=== PATIENT | male | born 1940 | race Caucasian/White ===

== ENCOUNTER 2016-06-16 19:02 | Inpatient (IN) ==
[2016-06-16] MEDS ORDERED: ASPIRIN 325 MG TABLET PO STA (22:13)
[2016-06-16] MEDS ORDERED: ASPIRIN 325 MG TABLET ONE (22:16)
--- NOTE | 2016-06-16 22:16 | Emergency Department Note ---
IAzalea Kasabria, am scribing for, and in the presence of, Wilyl Smith MD 22:11. ILuis Charles R, MD, personally performed the services described in this documentation, ascribed by Aide Tristan in my presence, and it is both accurate and complete . Arrival - Arrival Chief Complaint: Weakness Stated Complaint: MAY HAVE HAD A STROKE ED Nursing Triage Note: pt states he is having right and left side leg pain that started yesterday around 1800. states he hurt all night and all today. states he feels weaker on the right side and is unable to ambulate without a cane Limitations: No Limitations Source: Patient Time Seen by Provider: 06/16/16 21:07 - History of Present Illness HPI Narrative: This is a 76 y/o white male presenting to the ED with c/o right leg weakness, right leg pain and numbness, left shoulder pain that onset last night. He states throughout the course of the day the weakness and decreased strength worsened and he had to use a cane. He believes he may have had a stroke. Pt denies fever, chills, nausea, vomiting, diarrhea, abdominal pain, back pain, facial numbness and weakness, and vertigo. Pt states he has had diarrhea for the past week but denies hematochezia. When standing pt states he drifts to the right. Pt has a pacemaker and his slinger sequins is Dr. Escobar. Consistency: constant Severity: moderate Allergies/Adverse Reactions: Allergies Allergy/AdvReac Type Severity Reaction Status Date / Time No Known Allergies Allergy Verified 10/03/14 19:57 Home Medications: Home Medications Medication Instructions Recorded Confirmed Type Aspirin [Ecotrin] 81 mg PO QOTHER DAY 10/03/14 12/16/15 History Carvedilol [Coreg] 25 mg PO BID 10/03/14 12/16/15 History Furosemide Tab [Lasix Tab] 40 mg PO DAILY 10/03/14 12/16/15 History Levothyroxine Tab [Synthroid Tab] 150 mcg PO BEDTIME 10/03/14 12/16/15 History Lisinopril 5 mg PO DAILY 10/03/14 12/16/15 History Niacin 500 mg PO DAILY 10/03/14 12/16/15 History Amitriptyline [Elavil] 25 mg PO BEDTIME 12/16/15 12/16/15 History Ciprofloxacin Tab [Cipro Tab] 500 mg PO Q12HR #20 tablet 12/16/15 Rx Colestipol HCl [Colestid] 2 gm PO BID 12/16/15 12/16/15 History Eluxadoline [Viberzi] 75 mg PO BID 12/16/15 12/16/15 History Review of System - Review of System 12 point system: reviewed and no additional remarkable complaints except as stated - Review of System Constitutional: Present: weakness. Absent: chills, fever Eyes: Absent: vision change Head/Ears/Nose/Throat: Absent: nasal drainage Respiratory: Absent: cough Cardiovascular: Absent: chest pain, dyspnea on exertion, syncope Gastrointestinal: Absent: abdominal pain, nausea, vomiting Genitourinary male: Absent: dysuria Musculoskeletal: Present: arm pain (left shoulder pain ), leg pain (right leg pain and numbness ). Absent: back pain, neck pain Skin: Absent: rash Neurological: Absent: headache, weakness, confusion, vertigo Psychiatric: Absent: anxiety Endocrine: Absent: fatigue Hematological/Lymphatic: Absent: easy bleeding Allergic/Immunologic: Absent: facial swelling Medical,Surgical,& Family Hx - Medical History Cardio: History of: Pacemaker, Cardiovascular Problems (pt states he also has a defibrillator) HEENT: History of: Ear Problem (Difficulty hearing), HEENT Problems (Sinus surgery) Endocrine: History of: Thyroid Disorder (Was prescribed Synthroid 0.150 mg Daily ) Genitourinary: History of: Prostate Problems (Was prescribed Flomax) Gastrointestinal: History of: Diverticulitis/ Diverticulosis, GERD ( fundoplication at [place] several years ago), GI Problems (Irritable Bowel Syndrome ) Reproductive: No histroy: Reproductive Problems Other: History of: Cancer (Possible colon cancer) - Surgical History Thoracic Surgeries: Patient denies;: Organ Transplant Abdominal Surgeries: Surgical HX of: Abdominal Surgery, Cholecystectomy Reproductive Surgeries: Surgical HX of;: Prostate Surgery (TURP) Orthopedic Surgeries: Surgical HX of;: Orthopedic Surgery (Back surgery) - Family History Family History: Reports;: Family Cancer (father, prostate), Family Diabetes ( father) Denies;: Family Anesthesia Reaction, Family Heart Disease, Family Hypertension, Family Psychiatric Problems, Family Stroke - Social History Smoking Status: Never smoker Frequency of Alcohol Use: None Type of Drug Use: None Exam Vital Signs: Vital Signs Temperature 99.3 F 06/16/16 20:25 Pulse Rate 72 06/16/16 20:25 Respiratory Rate 16 06/16/16 20:25 Blood Pressure 140/71 06/16/16 20:25 O2 Sat by Pulse Oximetry 97 06/16/16 19:06 - General General appearance: alert, in no apparent distress - Head Head exam: Present: atraumatic, normocephalic, normal inspection - Eye Eye exam: Present: normal appearance, PERRL, EOMI - ENT ENT exam: Present: normal exam, normal oropharynx, mucous membranes moist, TM's normal bilaterally, normal external ear exam - Neck Neck exam: Present: normal inspection, full ROM, trachea midline. Absent: tenderness - Respiratory Respiratory exam: Present: normal lung sounds bilaterally - Cardiovascular Cardiovascular exam: Present: regular rate, normal rhythm, normal heart sounds - Abdominal Exam Abdominal exam: Present: soft, normal bowel sounds. Absent: distention, tenderness - Extremities Exam Extremities exam: Present: full ROM, normal capillary refill, pedal edema (+2 edema bilaterally to lower extremities ). Absent: normal inspection, tenderness , calf tenderness - Back Exam Back exam: Present: normal inspection, full ROM. Absent: tenderness - Neurological Exam Neurological exam: Present: alert, oriented X3, CN II-XII intact, normal gait, motor sensory deficit (right leg weaker than left; weak per diem clerk to the right side) - Psychiatric Psychiatric exam: Present: normal affect, normal mood - Skin Skin exam: Present: warm, dry, intact, normal color. Absent: rash, diaphoresis Results - Labs CBC & BMP: 06/16/16 20:50 06/16/16 20:50 Lab Results: I have reviewed the patients labs Disposition Clinical Impression: Right lower extremity weakness, Right knee pain and swelling Case discussed with: patient Disposition: Still a Patient Condition: Stable Time of Disposition: 01:01 NIH Stroke Score - Stroke Score Initial Assessment Level of Consciousness: Alert Level of Consciousness Questions: Answers Both Correctly Level of Consciousness Commands: Obeys Both Correctly Best Gaze: Normal Visual Tristan: No Visual Loss Facial Palsy: Normal Motor - Right Arm: No Drift Motor - Left Arm: No Drift Motor - Right Leg: Drift Motor - Left Leg: No Drift Limb Ataxia: Absent Sensory (Pin Prick): Normal Best Language: Normal Dysarthria: Normal Extinction / Inattention (Neglect): No Neglect NIH Stroke Score: 1
[2016-06-16 22:28] LABS: Basophils % 0.3 % (0.0-0.8); Eosinophils # 0.1 10*3/uL (0.0-0.87); Eosinophils % 0.6 % (0.00-10.9); Hematocrit 44.3 VOL% (42.0-52.0); Hemoglobin 15.2 GM/DL (14.0-18.0); Immature Granulocytes % 0.9 %; Lymphocytes # 2.7 10*3/uL (1.4-4.0); Mean Corpuscular HGB Conc 34.3 GM/DL (32-36); Mean Corpuscular Hemoglobin 33 PG (27-34); Mean Corpuscular Volume 95.9 FL (87-102); Mean Platelet Volume 10.1 FL (9.6-12.0); Monocytes % 8.9 % (1.7-12.7); Neutrophils % 64.3 % (38.7-73.9); Platelet Count 159 T/CUMM (130-400); Red Blood Count 4.62 MC/CUMM (3.8-5.5); Red Cell Distribution Width 12.9 % (9.3-17.3); White Blood Count 10.8 T/CUMM (4-12)
[2016-06-16 22:28] LABS: Apearance,Urine CLEAR (Clear); Bilirubin,Urine Negative (Negative); Blood, Urine Negative (Negative); Glucose,Urine (UA) Negative (Negative); Hyaline Casts,Urine 1 /LPF (0-3); Ketones,Urine Negative (Negative); Mucus,Urine Occasional /LPF (Occasional); Nitrite,Urine Negative (Negative); Protein,Urine Negative; Urine Color Yellow (Yellow); Urine Urobilinogen < 2.0 EU/DL (0.2-1.0)
[2016-06-16 22:29] LABS: Partial Thromboplastin Time 28.5 SECS (0-40)
--- NOTE | 2016-06-16 22:29 | XRay Report ---
Portable chest Date: 06/16/2016 Clinical history: Cardiomegaly Comparison: 07/25/2012 Technique: Portable AP sitting chest Findings: The heart is minimally enlarged with left subclavian atrioventricular AICD. Chronic scarring in the lungs with unremarkable mediastinum. Degenerative changes are noted. Chronic volume loss in the distal left clavicle. Impression: No acute cardiopulmonary pathology identified. Left subclavian atrioventricular AICD. PROCEDURE INTERPRETED AT [facility] DEPARTMENT OF RADIOLOGY Final Report Signed by: Dr. Leonor Gonzáles
[2016-06-16 22:31] LABS: Barbiturates Screen,Urine Negative (Negative); Benzodiazepines Screen,Urine Negative (Negative); Cannabinoid Screen,Urine Negative (Negative); Opiate Screen,Urine Positive (Negative); Phencyclidine Screen,Urine Negative (Negative)
[2016-06-16 22:35] LABS: Alanine Aminotransferase 30 U/L (16-61); Albumin 4.2 G/DL (3.4-5.0); Alkaline Phosphatase 71 U/L (45-117); Aspartate Amino Transferase 23 U/L (0-37); Blood Urea Nitrogen 28 MG/DL (7-18); Calcium 8.6 MG/DL (8.5-10.1); Glucose 104 MG/DL (74-106); Osmolality,Calculated 282.5 MOS/KG (273-304); Potassium 4.3 MMOL/L (3.5-5.1); Sodium 139 MMOL/L (136-145); Total Protein 7.2 G/DL (6.4-8.3); Troponin I Only < 0.015 NG/ML (0.00-0.045)
--- NOTE | 2016-06-16 22:43 | CT Report ---
Referring physician: Willy Smith Exam: CT brain without contrast Date: 06/16/2016 Comparison: 10/05/2014 Reason: Hemiparesis, weakness right greater than left Technique: Axial images of the head were obtained without the use of contrast. Total DLP was 1134.10 mGy*cm. Findings: No hydrocephalus or midline shift is present. There is no evidence of an acute infarction, recent intracranial hemorrhage or abnormal mass effect. Persistent atrophy and diffuse cerebral hypodensities. The mastoid air cells are clear. Postoperative findings in the paranasal sinuses with stable density in the frontal sinuses. Mucosal thickening/fluid in the anterior left ethmoid air cells/frontal sinuses with chronic mucosal thickening in the top of the maxillary sinuses. Impression: No acute intracranial abnormality is identified. Atrophy and microvascular disease. Sinusitis. The CT exam was performed using one or more of the following dose reduction techniques: Automated exposure control and adjustment of the mA and/or kV according to patient size. PROCEDURE INTERPRETED AT [facility] DEPARTMENT OF RADIOLOGY Final Report Signed by: Dr. Leonor Gonzáles
[2016-06-16 23:58] LABS: Free T4 (Free Thyroxine) 1.3 NG/DL (0.76-1.46); Thyroid Stimulating Hormone 1.37 uIU/ml (0.358-3.74)
[2016-06-17] MEDS ORDERED: LABETALOL 20 MG/4 ML SYRINGE IV PRN (00:15)
--- NOTE | 2016-06-17 00:20 | Hospitalist History & Physical ---
Assessment and Plan (1) Right leg weakness Status: Acute Assessment and plan: Rule out possible stroke. I suspect this is related to his knee and leg pain and swelling. Will get ultrasound of the lower extremity to rule out DVT. He does not have any significant right upper extremity weakness. Speech is intact and there is no facial droop. Sensation appears to be intact also. Patient unable to get an MRI due to pacemaker placement. Will perform stroke workup with carotid ultrasound and echocardiogram and neurology consult. Current Visit: Yes (2) CVA (cerebral vascular accident) Status: Acute Current Visit: Yes Qualifiers: Laterality of affected vessel: left (3) Hypertension Status: Chronic Current Visit: Yes Qualifiers: Hypertension type: essential hypertension Qualified Code(s): I10 - Essential (primary) hypertension History of Present Illness Chief complaint: Right leg weakness, inability to walk History of present illness: Mr. May is a 76 year old male presenting to the ED with c/o right leg weakness , right leg pain and numbness. He states throughout the course of the day the weakness and decreased strength worsened and he had to use a cane. He believes he may have had a stroke. Pt denies fever, chills, nausea, vomiting, diarrhea, abdominal pain, back pain, facial numbness and weakness, and vertigo. Pt states he has had diarrhea for the past week but denies hematochezia. When standing pt states he drifts to the right. Pt has a pacemaker and his sales and service advisor is Dr. Escobar. He denies any blurred vision, headache, slurred speech or facial asymmetry. He does complain of significant right knee pain and swelling. He has a history of previous orthopedic surgery and follows with Dr. Jackson Carrera. Home Medications Medication Instructions Recorded Confirmed Type Aspirin [Ecotrin] 81 mg PO QOTHER DAY 10/03/14 12/16/15 History Carvedilol [Coreg] 25 mg PO BID 10/03/14 12/16/15 History Furosemide Tab [Lasix Tab] 40 mg PO DAILY 10/03/14 12/16/15 History Levothyroxine Tab [Synthroid Tab] 150 mcg PO BEDTIME 10/03/14 12/16/15 History Lisinopril 5 mg PO DAILY 10/03/14 12/16/15 History Niacin 500 mg PO DAILY 10/03/14 12/16/15 History Amitriptyline [Elavil] 25 mg PO BEDTIME 12/16/15 12/16/15 History Ciprofloxacin Tab [Cipro Tab] 500 mg PO Q12HR #20 tablet 12/16/15 Rx Colestipol HCl [Colestid] 2 gm PO BID 12/16/15 12/16/15 History Eluxadoline [Viberzi] 75 mg PO BID 12/16/15 12/16/15 History Allergies Allergy/AdvReac Type Severity Reaction Status Date / Time No Known Allergies Allergy Verified 10/03/14 19:57 Medical,Surgical,& Family Hx - Medical History Cardio: History of: Pacemaker, Cardiovascular Problems (pt states he also has a defibrillator) HEENT: History of: Ear Problem (Difficulty hearing), HEENT Problems (Sinus surgery) Endocrine: History of: Thyroid Disorder (Was prescribed Synthroid 0.150 mg Daily ) Genitourinary: History of: Prostate Problems (Was prescribed Flomax) Gastrointestinal: History of: Diverticulitis/ Diverticulosis, GERD ( fundoplication at [place] several years ago), GI Problems (Irritable Bowel Syndrome ) Reproductive: No histroy: Reproductive Problems Other: History of: Cancer (Possible colon cancer) - Surgical History Thoracic Surgeries: Patient denies;: Organ Transplant Abdominal Surgeries: Surgical HX of: Abdominal Surgery, Cholecystectomy Reproductive Surgeries: Surgical HX of;: Prostate Surgery (TURP) Orthopedic Surgeries: Surgical HX of;: Orthopedic Surgery (Back surgery), Total Knee Replacement - Family History Family History: Reports;: Family Cancer (father, prostate), Family Diabetes ( father) Denies;: Family Anesthesia Reaction, Family Heart Disease, Family Hypertension, Family Psychiatric Problems, Family Stroke - Social History Smoking Status: Never smoker Frequency of Alcohol Use: None Type of Drug Use: None Marital Status: Single Lives With:: Alone Functional capacity: independent ambulation 12 point system: reviewed and no additional remarkable complaints except as stated Exam - Constitutional Vitals: Period Temp Pulse Resp BP Sys/Peck Pulse Ox Last 24 Hr 99.3 F-99.3 F 72-72 16-16 140-140/71-71 97 Exam: Constitutional System: No distress. No tremulousness. Head: Normocephalic, atraumatic. Ears, Nose and Throat System: No pain or tenderness. No epistaxis or discharge Eyes System: Pupils equal, round, and reactive. Extraocular muscles intact. Neck: Supple, without adenopathy, No jugular venous distention. No thyromegaly, neck mass, or prior surgery apparent. Respiratory System: Chest clear to auscultation. Cardiovascular System: Heart with regular rate and rhythm. No murmur. GI System: Abdomen soft, nontender. Normo active bowel sounds present. Musculoskeletal System: Right lower extremity with significant swelling and no pitting edema Full distal pulses. Right knee is significantly swollen, tender and warm. Neurological System: No discernable sensory deficit. No aphasia. Equal strength bilaterally. I was not able to ambulate the patient due to his knee pain. He has significant difficulty moving the right lower extremity secondary to swelling and pain. This does not appear to be an acute neurologic deficit. Speech is intact. Psychiatric System: Conversation is rational Results - Labs CBC & BMP: 06/16/16 20:50 06/16/16 20:50 Lab Results: I have reviewed the past 24 hour labs
[2016-06-17] MEDS: SODIUM CHLORIDE 0.9% 1,000 ML IV SCH (01:55)
[2016-06-17] MEDS ORDERED: COLCHICINE 0.6 MG TABLET PO ONE (02:53)
[2016-06-17 02:55] LABS: Risk Ratio 2.23; Thyroid Stimulating Hormone 1.28 uIU/ml (0.358-3.74); VLDL CHOLESTEROL 18.6 MG/DL
[2016-06-17] MEDS: ACETAMINOPHEN 325 MG TABLET PO PRN (03:04)
--- NOTE | 2016-06-17 06:48 | EKG Report ---
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
--- NOTE | 2016-06-17 08:12 | Ultrasound Report ---
Exam: Bilateral lower extremity venous Doppler ultrasound Comparison: None Clinical history: Right leg pain and swelling, edema Technique: Duplex scan of the lower extremity veins using B-mode/grayscale scaled imaging and Doppler spectral analysis and color flow. Findings: Major venous structures of the lower extremities demonstrate a normal course and caliber. Normal color-flow study and spectral analysis. There is normal compression and augmentation of bilateral common femoral, superficial femoral and popliteal veins. The proximal bilateral greater saphenous veins appear to be patent. Impression: No evidence to suggest deep venous thrombosis within either lower extremity. Ultrasound images were captured and stored. PROCEDURE INTERPRETED AT [facility] DEPARTMENT OF RADIOLOGY Final Report Signed by: Dr. Leonor Gonzáles
--- NOTE | 2016-06-17 08:33 | Ultrasound Report ---
Exam: Carotid ultrasound Date: 06/17/2016 Comparison: None Technique: Duplex scans of the carotid and vertebral arteries using B-mode/Petit scale imaging and Doppler spectral analysis and color flow. Reason: CVA with right-sided weakness Findings: The right ICA measures 5.9 mm in diameter and the left ICA measures 4.2 mm in diameter. Color-flow documented in the visualized arteries. The peak systolic velocities are as follows: Right CCA: 66.7 cm/s Right ICA: 83.8 cm/s Right ECA: 93.5 cm/s Left CCA: 58.6 cm/s Left ICA: 153.0 cm/s Left ECA: 59.4 cm/s The peak systolic ICA/CCA velocity ratios are as follows: 1.2 on the right and 2.6 on the left. Antegrade flow is present in both vertebral arteries. Impression:[Less than 50% stenosis in right ICA. 50-79% stenosis and left ICA with heterogeneous plaque formation. The artery is tortuous and therefore this stenosis may be less critical. Antegrade flow in both vertebral arteries.] The Society of Radiologists in Ultrasound consensus conference criteria was used. The Ultrasound images were captured and stored. PROCEDURE INTERPRETED AT [facility] DEPARTMENT OF RADIOLOGY Final Report Signed by: Dr. Leonor Gonzáles
[2016-06-17] MEDS ORDERED: ELUXADOLINE 75 MG PO SCH (09:00)
[2016-06-17] MEDS: NIACIN 500 MG TABLET PO SCH (10:19)
[2016-06-17] MEDS: ENOXAPARIN 40 MG/0.4 ML SYRINGE SUBCUT SCH (10:19)
[2016-06-17] MEDS: PANTOPRAZOLE 40 MG TABLET PO SCH (10:19)
[2016-06-17] MEDS: ASPIRIN 325 MG TABLET PO SCH (10:19)
[2016-06-17] MEDS: LISINOPRIL 5 MG TABLET PO SCH (10:19)
[2016-06-17] MEDS: COLESTIPOL 1 GM TABLET PO SCH ×2 (10:19→20:55)
[2016-06-17] MEDS: CARVEDILOL 25 MG TABLET PO SCH ×2 (10:19→20:55)
--- NOTE | 2016-06-17 14:54 | Neurology Consult Note ---
History of Present Illness History of present illness: Mr. May is a 76 year old right-handed gentleman presented to the ED with c/o right leg weakness, right leg pain and numbness. Patient reported that it started day before yesterday with both leg weakness but the weakness was somewhat more than the right than the left. He states throughout the course of the day the weakness and decreased strength worsened and he had to use a cane. Pt denies fever, chills, nausea, vomiting, diarrhea, abdominal pain, back pain, facial numbness and weakness, and vertigo. Pt states he has had diarrhea for the past week but denies hematochezia. When standing pt states he drifts to the right. Pt has a pacemaker and his cytometry technologist is Dr. Escobar. He denies any blurred vision, headache, slurred speech or facial asymmetry. He does complain of significant right knee pain and swelling. He has a history of previous orthopedic surgery and follows with Dr. Jackson Crarera. He does have right foot dorsiflexion weakness. Patient reported that 2 days ago he was walking like a normal person but now he is having marked difficulty and having to use a walker. CT scan of the brain reveals no acute abnormalities. Home Medications Medication Instructions Recorded Confirmed Type Aspirin [Ecotrin] 81 mg PO QOTHER DAY 10/03/14 06/17/16 History Carvedilol [Coreg] 25 mg PO BID 10/03/14 06/17/16 History Furosemide Tab [Lasix Tab] 40 mg PO DAILY 10/03/14 06/17/16 History Levothyroxine Tab [Synthroid Tab] 150 mcg PO BEDTIME 10/03/14 06/17/16 History Lisinopril 5 mg PO DAILY 10/03/14 06/17/16 History Niacin 500 mg PO DAILY 10/03/14 06/17/16 History Amitriptyline [Elavil] 25 mg PO BEDTIME 12/16/15 06/17/16 History Ciprofloxacin Tab [Cipro Tab] 500 mg PO Q12HR #20 tablet 12/16/15 06/17/16 Rx Colestipol HCl [Colestid] 2 gm PO BID 12/16/15 06/17/16 History Eluxadoline [Viberzi] 75 mg PO BID 12/16/15 06/17/16 History Allergies Allergy/AdvReac Type Severity Reaction Status Date / Time No Known Allergies Allergy Verified 06/17/16 03:04 12 point system: reviewed and no additional remarkable complaints except as stated Medical,Surgical,& Family Hx - Medical History Cardio: History of: Pacemaker, Cardiovascular Problems (pt states he also has a defibrillator) HEENT: History of: Ear Problem (Difficulty hearing), HEENT Problems (Sinus surgery) Endocrine: History of: Thyroid Disorder (Was prescribed Synthroid 0.150 mg Daily ) Genitourinary: History of: Prostate Problems (Was prescribed Flomax) Gastrointestinal: History of: Diverticulitis/ Diverticulosis, GERD ( fundoplication at [place] several years ago), GI Problems (Irritable Bowel Syndrome ) Musculoskeletal: History of: Back/Neck Problems Reproductive: No histroy: Reproductive Problems Other: History of: Cancer (Possible colon cancer) - Surgical History Cardiac Surgeries: Sugical HX of: Internal Defibrillator Thoracic Surgeries: Patient denies;: Organ Transplant Abdominal Surgeries: Surgical HX of: Abdominal Surgery, Cholecystectomy Reproductive Surgeries: Surgical HX of;: Genitourinary Surgery, Prostate Surgery (TURP) Orthopedic Surgeries: Surgical HX of;: Orthopedic Surgery (Back surgery), Total Knee Replacement - Family History Family History: Reports;: Family Cancer (father, prostate), Family Diabetes ( father) Denies;: Family Anesthesia Reaction, Family Heart Disease, Family Hypertension, Family Psychiatric Problems, Family Stroke - Social History Smoking Status: Never smoker Frequency of Alcohol Use: None Type of Drug Use: None Exam - Constitutional Vitals: Period Temp Pulse Resp BP Sys/Peck Pulse Ox Last 24 Hr 97.6 F-98.6 F 70-79 18-20 111-129/63-85 94-96 Exam: GENERAL: Patient is in no acute distress. NECK: Neck is supple. There is no JVD. No carotid bruits present. No thyroid masses. CVS: First and second heart sounds are normal. There is no S3 present. Regular rate and rhythm. RESPIRATORY: Lungs are clear to auscultation without any rales or rhonchi. ABDOMEN: Soft and non-tender. Bowel sounds are present. There is no hepatosplenomegaly. EXT: There is no palpable edema. Peripheral pulses are present. Skin: No rashes Central Nervous system: General: Alert, awake and Oriented x 3 Speech: Fluent Comprehension: Intact and normal Facial expressions: Normal Cranial Nerves: CN1/Olfactory: Normal CN II/ Optic: Normal, Visual Tristan unreliable CN III, and : RACHELLE & EOMI CN V: Normal & intact CN VII: face is symmetric CNVIII: Normal CN XI/X/XI/XII: Intact and Normal Motor: Bulk and Tone is normal. Strength in the right 3/5 with manual weakness in the right dorsiflexion Strength in the left 4/5 Sensory: Decreased for all the modalities of PP, LT and temp sense stockings distribution Reflexes: 1+ and symmetrical Cerebellar function: Normal finger to nose and heel to kumari testing. Toes: Equivocal Gait: Able to get up and walk with the help of a walker Results - Labs CBC & BMP: 06/16/16 20:50 06/16/16 20:50 Assessment and Plan (1) Weakness of both lower extremities Status: Acute Assessment and plan: He reported weakness of both lower extremities however it is getting better and now he has primarily weakness in the right lower extremity. But pain is a major factor in the right knee as well. He does have mild right foot drop which is something new and given the history of preceding event of diarrhea followed by weakness, the whole scenario suggestive of possibility of demyelinating neuropathy such as Guillain-Yarbrough syndrome. Unfortunately nerve conduction study and EMG are not available over the weekend. Patient is improving rapidly as well. MRI cannot be performed due to pacemaker. At this point I would recommend to continue watchful observation and continue aggressive physical therapy since patient is improving. We will also continue pain management. If at any point in time over the weekend, I see that he is deteriorating again then we will start IVIG treatment. Thank you for the consult. Current Visit: Yes
[2016-06-17] MEDS: MAGNESIUM HYDROXIDE SUSP 30 ML UDCUP PO PRN (17:42)
--- NOTE | 2016-06-17 19:21 | ECHO Report ---
Augustus May Exam Date: 06/17/2016 14:53 Referring Physician: Technologist: Gabby Sharma RDCS Age: 76 Ht (in): 72 Wt (lb): 240 Gender: M Exam Location: [facility] Echo Indications: Right leg weakness, CVA, Essential (primary) hypertension, Presence of cardiac pacemaker BP: 111 / 63 HR: 75 Rhythm: Pacemaker Technical Quality: Fair to good IMPRESSIONS 1. Left ventricle is normal size and systolic function with ejection fraction 65%. There is mild concentric left ventricular hypertrophy with mild diastolic dysfunction at worse. 2. Left atrium is mildly dilated. 3. Right ventricle is normal size and function with right atrium mildly dilated. 4. Right and left ventricle show evidence of having pacemaker leads. 5. Anatomically normal aortic valve with trace insufficiency. 6. Mitral valve is grossly normal anatomically functioning. 7. Trace to mild tricuspid regurgitation. 8. No evidence of elevated right-sided pressures. 9. There is no gross source for emboli identified on this study. MEASUREMENTS (Male / Female) Normal Values 2D ECHO LV Diastolic Diameter PLAX 3.9 cm 4.2 - 5.9 / 3.9 - 5.3 cm LV Systolic Diameter PLAX 2.1 cm LV Fractional Shortening PLAX 46.8 % IVS Diastolic Thickness 1.4 cm 0.6 - 1.0 / 0.6 - 0.9 cm LVPW Diastolic Thickness 1.4 cm 0.6 - 1.0 / 0.6 - 0.9 cm RV Internal Dim ED PLAX 3.6 cm Aortic Root Diameter 3.4 cm LA Systolic Diameter LX 4.2 cm 3.0 - 4.0 / 2.7 - 3.8 cm DOPPLER TR Peak Velocity 231.0 cm/s TR Peak Gradient 21.3 mmHg FINDINGS Left Ventricle Normal left ventricular cavity size. Mild left ventricular hypertrophy. There may be mild diastolic dysfunction present. Left ventricular ejection fraction is estimated at 65 %. Right Ventricle Normal right ventricular size. Catheter/pacemaker wire visualized in the right ventricle. Right Atrium The right atrium is mildly enlarged. Catheter/pacemaker wire in the right atrial cavity. Left Atrium The left atrium is mildly enlarged. Mitral Valve Morphologically normal mitral valve without significant stenosis or prolapse. There is no mitral regurgitation. Aortic Valve Trileaflet aortic valve. Trace aortic valve regurgitation. Tricuspid Valve Morphologically normal tricuspid valve. Trace to mild tricuspid valve regurgitation. Tricuspid regurgitation velocities suggest a PAP of 31 mmHg. Pulmonic Valve Morphologically normal pulmonic valve. Trace pulmonary valve regurgitation. Pericardium Normal pericardium without effusion. Anterior pericardial fat pad is present. Aorta Normal ascending aorta dimension. Yifan Rodríguez MD (Electronically Signed) Final Date: 17 June 2016 19:20
[2016-06-17] MEDS: LEVOTHYROXINE 150 MCG TABLET PO SCH (20:55)
[2016-06-17] MEDS: AMITRIPTYLINE 25 MG TABLET PO SCH (20:57)
--- NOTE | 2016-06-18 08:36 | Orthopedic Consult Note ---
History of Present Illness Chief complaint: Right knee pain postop total knee, Dr. Carrera History of present illness: Mr. May is a 76 year old male who is been admitted to the medical service at [facility] for medical issues. He gives a history related to his right knee that includes total knee replacement performed by Dr. Jackson Carrera about 20 years ago he had no perioperative problems or complication is done well for a number of years. recently he has been having increasing amounts of pain discomfort and swelling. He reports that he saw Dr. Carrera a month ago and was prescribed a course of physical therapy for which she states it did not help his knee pain. He also reports that Dr. Carrera and Dr. Choi have discussed the possibility of revising his right knee replacement. He has not yet been offered that surgery, he does not know if they said anything about loosening. There is been no recent history of fall or injury. Examination: Well-developed nourished male the right knee reveals diffuse swelling about the right knee range of motion from 10 to about 90 with gentle active motion. There is no significant warmth no erythema no swelling distally about the tib-fib or ankle is stable to varus and valgus stress all of his wounds are well-healed without any evidence of complication. X-rays: none-on admission Impression: Painful right total knee, suspect aseptic loosening Plan: I discussed with him the most likely diagnosis and the potential for further treatment. He is clearly under the care of history of his treating physician, Dr. Carrera for which he has an over 20 year experience. Also he has been seen as recently as a month ago regarding this problem. There is no emergent problem here today and I have recommended that he seek follow-up with Dr. Carrera after discharge that can discuss further treatment options since his course of physical therapy has not resulted in improvement. He appears to understand and agrees with the discussion and plan going forward. Thank you Home Medications Medication Instructions Recorded Confirmed Type Aspirin [Ecotrin] 81 mg PO QOTHER DAY 10/03/14 06/17/16 History Carvedilol [Coreg] 25 mg PO BID 10/03/14 06/17/16 History Furosemide Tab [Lasix Tab] 40 mg PO DAILY 10/03/14 06/17/16 History Levothyroxine Tab [Synthroid Tab] 150 mcg PO BEDTIME 10/03/14 06/17/16 History Lisinopril 5 mg PO DAILY 10/03/14 06/17/16 History Niacin 500 mg PO DAILY 10/03/14 06/17/16 History Amitriptyline [Elavil] 25 mg PO BEDTIME 12/16/15 06/17/16 History Ciprofloxacin Tab [Cipro Tab] 500 mg PO Q12HR #20 tablet 12/16/15 06/17/16 Rx Colestipol HCl [Colestid] 2 gm PO BID 12/16/15 06/17/16 History Eluxadoline [Viberzi] 75 mg PO BID 12/16/15 06/17/16 History Allergies Allergy/AdvReac Type Severity Reaction Status Date / Time No Known Allergies Allergy Verified 06/17/16 03:04 Medical,Surgical,& Family Hx - Medical History Cardio: History of: Pacemaker, Cardiovascular Problems (pt states he also has a defibrillator) HEENT: History of: Ear Problem (Difficulty hearing), HEENT Problems (Sinus surgery) Endocrine: History of: Thyroid Disorder (Was prescribed Synthroid 0.150 mg Daily ) Genitourinary: History of: Prostate Problems (Was prescribed Flomax) Gastrointestinal: History of: Diverticulitis/ Diverticulosis, GERD ( fundoplication at [facility] several years ago), GI Problems (Irritable Bowel Syndrome ) Musculoskeletal: History of: Back/Neck Problems Reproductive: No histroy: Reproductive Problems Other: History of: Cancer (Possible colon cancer) - Surgical History Cardiac Surgeries: Sugical HX of: Internal Defibrillator Thoracic Surgeries: Patient denies;: Organ Transplant Abdominal Surgeries: Surgical HX of: Abdominal Surgery, Cholecystectomy Reproductive Surgeries: Surgical HX of;: Genitourinary Surgery, Prostate Surgery (TURP) Orthopedic Surgeries: Surgical HX of;: Orthopedic Surgery (Back surgery), Total Knee Replacement - Family History Family History: Reports;: Family Cancer (father, prostate), Family Diabetes ( father) Denies;: Family Anesthesia Reaction, Family Heart Disease, Family Hypertension, Family Psychiatric Problems, Family Stroke - Social History Smoking Status: Never smoker Frequency of Alcohol Use: None Type of Drug Use: None Exam - Constitutional Vitals: Period Temp Pulse Resp BP Sys/Peck Pulse Ox Last 24 Hr 97.6 F-99.5 F 72-85 16-20 111-139/67-85 85-98 Results - Labs CBC & BMP: 06/16/16 20:50 06/16/16 20:50
[2016-06-18] MEDS: ASPIRIN 325 MG TABLET PO SCH (09:27)
[2016-06-18] MEDS: COLESTIPOL 1 GM TABLET PO SCH ×2 (09:28→20:48)
[2016-06-18] MEDS: PANTOPRAZOLE 40 MG TABLET PO SCH (09:28)
[2016-06-18] MEDS: CARVEDILOL 25 MG TABLET PO SCH ×2 (09:28→20:49)
[2016-06-18] MEDS: NIACIN 500 MG TABLET PO SCH (09:29)
[2016-06-18] MEDS: LISINOPRIL 5 MG TABLET PO SCH (09:29)
[2016-06-18] MEDS: ACETAMINOPHEN 325 MG TABLET PO PRN ×2 (09:29→18:27)
[2016-06-18] MEDS: MAGNESIUM HYDROXIDE SUSP 30 ML UDCUP PO PRN (09:31)
[2016-06-18] MEDS: ENOXAPARIN 40 MG/0.4 ML SYRINGE SUBCUT SCH (09:32)
--- NOTE | 2016-06-18 12:09 | Hospitalist Progress Note ---
Assessment and Plan (1) Right leg weakness Status: Acute Current Visit: Yes (2) CVA (cerebral vascular accident) Status: Acute Assessment and plan: The patient's right leg weakness appears to be independent of his right knee degenerative arthritis. The weakness appears to be improving. This would be consistent with lacunar infarction and less consistent with demyelinating disease. Our plan is to continue observation of the patient in the hospital. I discussed the patient's case with Dr. Carreon. He felt that the knee likely required revision with a new prosthesis but this might not be available here in [place]. Current Visit: Yes Qualifiers: Laterality of affected vessel: left (3) Hypertension Status: Chronic Current Visit: Yes Qualifiers: Hypertension type: essential hypertension Qualified Code(s): I10 - Essential (primary) hypertension Hospitalist: Subjective Interval history: The patient has continued pain in the right knee with inflammation. The patient 's hip abductors and calf muscles are stronger today. The patient is unable to ambulate due to right knee pain. I coordinated care with Dr. Carreon today. Exam - Constitutional Vitals: Period Temp Pulse Resp BP Sys/Peck Pulse Ox Last 24 Hr 97.6 F-99.5 F 68-85 16-20 111-139/67-80 85-98 Exam: Constitutional System: No distress. No tremulousness. Head: Normocephalic, atraumatic. Ears, Nose and Throat System: No evidence of Otitis or Mastoiditis. No epistaxis or discharge Eyes System: Pupils equal, round, and reactive. Extraocular muscles intact. Neck: Supple, without adenopathy, No jugular venous distention. No thyromegaly , neck mass, or prior surgery apparent. Respiratory System: Chest clear to auscultation. Cardiovascular System: Heart with regular rate and rhythm. No murmur. GI System: Abdomen soft, nontender. Normo active bowel sounds present. Musculoskeletal System: limbs with no pedal edema. Full distal pulses. Left knee warm, tender, inflamed. Neurological System: No discernable sensory deficit. No aphasia. There appears to be right leg greater than arm weakness but improved from yesterday Psychiatric System: Conversation is rational Results - Labs CBC & BMP: 06/16/16 20:50 06/16/16 20:50 Lab Results: I have reviewed the past 24 hour labs Quality Measures - Stroke Onset of Symptoms Date: 06/15/16 Onset of Symptoms Time: 18:00 Presenting Symptoms: Right hemiparesis
[2016-06-18] MEDS: SODIUM CHLORIDE 0.9% 1,000 ML IV SCH ×2 (18:07→18:08)
[2016-06-18] MEDS: LEVOTHYROXINE 150 MCG TABLET PO SCH (20:49)
[2016-06-18] MEDS: AMITRIPTYLINE 25 MG TABLET PO SCH (20:49)
[2016-06-18] MEDS ORDERED: oxyCODONE IR 5 MG TABLET PO PRN (21:58)
[2016-06-19 08:16] VITALS: BP 135/79
--- NOTE | 2016-06-19 08:26 | Discharge Summary ---
<Nannette Mendez - Last Filed: 06/19/16 08:20> Hospital Course - Hospital Course Hospital Course: Mr. May is a 76-year-old white male with history of pacemaker placement, hypothyroidism, And hypertension presenting to the [facility] ED on 06/16/2016 with complaints of right leg weakness, right leg pain and numbness following a period of diarrheal acute illness. CT scan of the head, carotid Dopplers, echocardiogram, and venous Doppler studies were all negative. Dr. Zuniga from neurology was consulted and he was suspicious of the possibility of demyelinating neuropathy such as Guillian Yarbrough syndrome. He ordered aggressive physical therapy and continued pain management and patient will follow-up with him next week for nerve conduction studies and EMG. Dr. Lauri Milner from orthopedics was also consulted for patient's right knee pain. Patient had a history of a total right knee by Dr. Jackson Carrera 20 years ago with no perioperative problems. He had been having increasing amounts of pain and discomfort and swelling and saw Dr. Carrera approximately 1 month ago and was prescribed a course of PT and pain control. Patient states that this did not help his knee pain. He also reported that Dr. Carrera and Dr. chowdary discussed the possibility of revising his right knee replacement. Dr. Garcia recommended that the patient follow-up with Dr. Carrera following discharge for further evaluation of the right knee pain. Patient received aggressive physical therapy and patient's weakness is improving on a daily basis. Dr. Torres, the hospitalist feels this may be consistent with lacunar infarction and less consistent with demyelinating disease. Patient is feeling well this morning, he is eating and ambulating independently in the room with a standard walker. He is still complaining of right knee pain but he states he has Mobic, Aleve, and [place]'s at home for control. He will be discharged home with a follow-up with Dr. Carrera and Dr. Zuniga for further studies. Patient's total discharge time took approximately 42 minutes. This included patient discharge education, review of the record and discharge summary, pt care coordination with Dr. Torres , Dr. Zuniga, Dr. Garcia, nursing and patient. - Time spent with patient Time with patient DS: Greater than 30 minutes Diagnosis - Discharge Diagnosis (1) Cardiac pacemaker Status: Acute (2) Right leg weakness Status: Acute (3) CVA (cerebral vascular accident) Status: Acute (4) Hypertension Status: Chronic Specialty Discharge - Follow Up or Referrals Follow up with: Davis Zuniga MD [Physician] - 1 Week (call monday and make appt) Doin Carrera MD [Physician] - 1 Week (call monday and make appt) Discharge Plan - Discharge Data Disposition: Disch To Home/Self Care Condition at Discharge: Stable Discharge Diet: advance to your usual diet Activity: as per physical therapy Hygiene: may shower Weight Bearing at Discharge: weight bear as tolerated Driving: other (Do not drive if taking pain medicines) Contact your physician if you experience:: fever over 101, Redness or swelling - Discharge Medications Continue Lisinopril 5 mg PO DAILY Niacin 500 mg PO DAILY Aspirin [Ecotrin] 81 mg PO QOTHER DAY Levothyroxine Tab [Synthroid Tab] 150 mcg PO BEDTIME Furosemide Tab [Lasix Tab] 40 mg PO DAILY Carvedilol [Coreg] 25 mg PO BID Amitriptyline [Elavil] 25 mg PO BEDTIME Eluxadoline [Viberzi] 75 mg PO BID Colestipol HCl [Colestid] 2 gm PO BID Ciprofloxacin Tab [Cipro Tab] 500 mg PO Q12HR #20 tablet - Follow Up or Referral Follow Up: Dion Carrera MD [Physician] - 1 Week (call monday and make appt) Davis Zuniga MD [Physician] - 1 Week (call monday and make appt) - Forms/Instructions Instructions: Self Care Measures After a Stroke (DC), Self Care Measures After a Stroke (GEN), Weakness (GEN) Exam - Constitutional Vitals: Period Temp Pulse Resp BP Sys/Peck Pulse Ox Last 24 Hr 98.0 F-98.4 F 68-75 16-20 109-135/69-80 92-96 Exam: 76-year-old white male, no acute distress, alert and oriented Chest clear CV regular rate and rhythm Abdomen obese nontender Extremities with no pedal edema, right leg weakness 3/5, TTP right knee DS: Provider Date of admission: 06/17/16 00:15 Primary care physician: . No PCP Attending physician on admission: Christian Torres MD Consults: 06/17/16 17:20 Consult to Physician [CONS] Routine Comment: painful swelling of right knee replacement Consulting Provider: Geoffrey Garcia Jr. Person Notified: DR GARCIA Date Notified: 06/18/16 Time Notified: 08:31 Discharging clinician: JEFFY Jade Expected date of discharge: 06/19/16 <Christian Torres - Last Filed: 06/19/16 10:36> Hospital Course - Hospital Course Hospital Course: I evaluated this patient and completed independent history and physical examination. I coordinated care with JEREMIAH Fregoso PA-C. I agree with the documentation that she provides below. On the date of discharge chest clear abdomen soft dysmetria is resolved but the patient has tenderness of the right knee when standing. I gave the patient a letter for Dr. Jackson Carrera to request consideration for the patient to have revision of his right total knee arthroplasty. [id number] time on the date of discharge 38 minutes Diagnosis - Discharge Diagnosis (1) Right leg weakness Status: Acute (2) CVA (cerebral vascular accident) Status: Acute (3) Hypertension Status: Chronic
[2016-06-19] MEDS: NIACIN 500 MG TABLET PO SCH (10:39)
[2016-06-19] MEDS: CARVEDILOL 25 MG TABLET PO SCH (10:39)
[2016-06-19] MEDS: ASPIRIN 325 MG TABLET PO SCH (10:39)
[2016-06-19] MEDS: PANTOPRAZOLE 40 MG TABLET PO SCH (10:41)
[2016-06-19] MEDS: LISINOPRIL 5 MG TABLET PO SCH (10:41)
[2016-06-19] MEDS: COLESTIPOL 1 GM TABLET PO SCH (10:42)
[2016-06-19] MEDS: ENOXAPARIN 40 MG/0.4 ML SYRINGE SUBCUT SCH (10:43)
== END 2016-06-19 11:00 | disposition home or self-care (01) | DRG 65 ==
LOC: N.ED 19:02 → N.3E 06-17 00:15
PROVIDERS: ADMIT Internal Medicine; ATTEND Internal Medicine

== ENCOUNTER 2017-09-17 11:12 | Inpatient (IN) ==
[2017-09-17 12:07] LABS: Basophils # 0.1 10*3/uL (0.0-0.2); Eosinophils # 0.1 10*3/uL (0.0-0.87); Eosinophils % 2.7 % (0.00-10.9); Hematocrit 42.7 VOL% (42.0-52.0); Hemoglobin 14.1 GM/DL (14.0-18.0); Immature Granulocytes % 0.6 %; Immature Granulocytes Absolute 0.03 #; Lymphocytes # 2.4 10*3/uL (1.4-4.0); Lymphocytes % 45.3 % (21.2-54.2); Mean Corpuscular Hemoglobin 32 PG (27-34); Mean Corpuscular Volume 96.6 FL (87-102); Mean Platelet Volume 9.4 FL (9.6-12.0); Monocytes # 0.4 10*3/uL (0.11-0.8); Neutrophils # 2.2 10*3/uL (1.4-7.4); Neutrophils % 42.4 % (38.7-73.9); Platelet Count 153 T/CUMM (130-400); Red Blood Count 4.42 MC/CUMM (3.8-5.5); Red Cell Distribution Width 12.9 % (9.3-17.3); White Blood Count 5.3 T/CUMM (4-12)
[2017-09-17 12:18] LABS: INR 0.9; Partial Thromboplastin Time 25.7 SECS (0-40)
[2017-09-17 12:46] LABS: Alanine Aminotransferase 28 U/L (16-61); Albumin 3.8 G/DL (3.4-5.0); Alkaline Phosphatase 79 U/L (45-117); Aspartate Amino Transferase 24 U/L (0-37); Blood Urea Nitrogen 21 MG/DL (7-18); Calcium 8.2 MG/DL (8.5-10.1); Glucose 96 MG/DL (74-106); Osmolality,Calculated 285.1 MOS/KG (273-304); Potassium 5.1 MMOL/L (3.5-5.1); Sodium 142 MMOL/L (136-145); Total Protein 6.8 G/DL (6.4-8.3); Troponin I Only < 0.015 NG/ML (0.00-0.045)
[2017-09-17] MEDS ORDERED: ALUM/MAG/SIMETH/LIDO VISC 1:1 30 ML BOTTLE PO STA (13:31)
[2017-09-17] MEDS ORDERED: ASPIRIN 325 MG TABLET PO STA (13:31)
[2017-09-17] MEDS ORDERED: MORPHINE 4 MG/1 ML VIAL IV STA (13:31)
[2017-09-17] MEDS ORDERED: ONDANSETRON 4 MG/2 ML VIAL IV STA (13:31)
[2017-09-17] MEDS ORDERED: NITROGLYCERIN 2% OINT 1 INCH/GM PACK TOP STA (13:31)
[2017-09-17] MEDS ORDERED: POTASSIUM CHLORIDE 20 MEQ TABLET PO PRN (15:44)
[2017-09-17] MEDS ORDERED: MORPHINE 4 MG/1 ML VIAL IV PRN (15:44)
[2017-09-17] MEDS ORDERED: ONDANSETRON 4 MG/2 ML VIAL IV PRN (15:44)
[2017-09-17] MEDS ORDERED: MAGNESIUM SULF RIDER 4 GM in PREMIX 1 EACH IV PRN (15:44)
[2017-09-17] MEDS ORDERED: MAGNESIUM SULF RIDER 2 GM in PREMIX 1 EACH IV PRN (15:44)
[2017-09-17] MEDS: SODIUM CHLORIDE 0.9% 1,000 ML IV SCH (17:00)
[2017-09-17] MEDS ORDERED: FUROSEMIDE 40 MG TABLET PO PRN (18:17)
[2017-09-17 19:43] LABS: Troponin I Only < 0.015 NG/ML (0.00-0.045)
[2017-09-17] MEDS: COLESTIPOL 1 GM TABLET PO SCH (21:02)
[2017-09-17] MEDS: CARVEDILOL 12.5 MG TABLET PO SCH (21:03)
[2017-09-17] MEDS: ENOXAPARIN 120 MG/0.8 ML SYRINGE SUBCUT SCH (21:03)
[2017-09-17 22:27] LABS: Troponin I Only < 0.015 NG/ML (0.00-0.045)
[2017-09-18] MEDS: SODIUM CHLORIDE 0.9% 1,000 ML IV SCH (05:08)
[2017-09-18 05:29] LABS: Basophils % 0.7 % (0.0-0.8); Eosinophils # 0.1 10*3/uL (0.0-0.87); Eosinophils % 2.1 % (0.00-10.9); Hematocrit 40.2 VOL% (42.0-52.0); Hemoglobin 13.3 GM/DL (14.0-18.0); Immature Granulocytes % 0.4 %; Immature Granulocytes Absolute 0.02 #; Lymphocytes # 2.2 10*3/uL (1.4-4.0); Lymphocytes % 38.9 % (21.2-54.2); Mean Corpuscular HGB Conc 33.1 GM/DL (32-36); Mean Corpuscular Hemoglobin 32 PG (27-34); Mean Corpuscular Volume 95.5 FL (87-102); Mean Platelet Volume 9.4 FL (9.6-12.0); Monocytes # 0.3 10*3/uL (0.11-0.8); Neutrophils # 2.9 10*3/uL (1.4-7.4); Neutrophils % 51.9 % (38.7-73.9); Platelet Count 138 T/CUMM (130-400); Red Blood Count 4.21 MC/CUMM (3.8-5.5); Red Cell Distribution Width 12.6 % (9.3-17.3); White Blood Count 5.7 T/CUMM (4-12)
[2017-09-18 05:56] LABS: Albumin 2.9 G/DL (3.4-5.0); Bilirubin,Total 0.4 MG/DL (0.2-1.0); Osmolality,Calculated 283.1 MOS/KG (273-304); Potassium 4.2 MMOL/L (3.5-5.1); Total Protein 6.1 G/DL (6.4-8.3)
[2017-09-18 05:57] LABS: Risk Ratio 3.23; Thyroid Stimulating Hormone 5.33 uIU/ml (0.358-3.74); VLDL CHOLESTEROL 31.6 MG/DL
[2017-09-18] MEDS ORDERED: LEVOTHYROXINE 150 MCG TABLET PO SCH (07:00)
[2017-09-18 07:59] VITALS: BP 135/82
[2017-09-18] MEDS: CARVEDILOL 12.5 MG TABLET PO SCH (08:52)
[2017-09-18] MEDS: COLESTIPOL 1 GM TABLET PO SCH (08:52)
[2017-09-18] MEDS: ENOXAPARIN 120 MG/0.8 ML SYRINGE SUBCUT SCH (08:56)
[2017-09-18] MEDS ORDERED: MELOXICAM 7.5 MG TABLET PO SCH (09:00)
[2017-09-18] MEDS ORDERED: CYANOCOBALAMIN PO SCH (09:00)
[2017-09-18] MEDS ORDERED: DOCUSATE SODIUM 100 MG CAPSULE PO SCH (09:00)
[2017-09-18] MEDS ORDERED: MULTIVITAMIN (CENTRUM) TABLET PO SCH (09:00)
[2017-09-18] MEDS ORDERED: NIACIN 500 MG TABLET PO SCH (09:00)
[2017-09-18] MEDS ORDERED: PANTOPRAZOLE 40 MG TABLET PO SCH (09:00)
[2017-09-18] MEDS ORDERED: HEPARIN/NACL 0.9% 2 UNITS/ML 1,000 ML IV ONE (09:05)
[2017-09-18] MEDS ORDERED: LIDOCAINE 1% 20 ML VIAL ONE (09:05)
[2017-09-19] MEDS ORDERED: ASPIRIN EC 81 MG TABLET PO SCH (09:00)
== END 2017-09-18 10:58 | disposition home or self-care (01) | DRG 392 ==
LOC: N.ED 11:12 → N.EDINP 14:29 → N.TELEN 15:41
PROVIDERS: ADMIT Internal Medicine Cardiovascular Disease; ATTEND Internal Medicine Cardiovascular Disease